=== PATIENT | male | born 1985 ===

== ENCOUNTER 2016-08-06 18:53 | Emergency (ER) | payer OTHER ==
[~2016-08-06] VITALS: Ht 172.7 cm; Wt 133.7 kg
[2016-08-06 19:01] VITALS: Ht 172.7 cm; Wt 133.7 kg
--- NOTE | 2016-08-06 19:39 | DIAGNOSTIC IMAGING REPORT ---
LEFT ANKLE MIN 3 VIEWS ROUTINE CLINICAL HISTORY: Left ankle injury. COMPARISON: None FINDINGS: Alignment of left ankle is anatomic. No acute fracture is identified. There is moderate lateral ankle soft tissue swelling. Talar dome is intact. IMPRESSION: 1. No acute fracture or dislocation of the left ankle. 2. Moderate lateral ankle soft tissue swelling. Electronically signed by: Kenneth Alvarez M.D. 08/06/2016 7:38 PM Dictated Date/Time: 08/06/2016 7:36 PM
[2016-08-06] MEDS ORDERED: KETO1DRO17 OPB (19:44)
[2016-08-06] MEDS ORDERED: CLR10 PO (19:44)
[2016-08-06] MEDS ORDERED: IBUP-103 PO (19:44)
[2016-08-06 20:08] VITALS: BP 141/81; PULSE 76; TEMP 37; O2SAT 99
--- NOTE | 2016-08-06 21:09 | EMERGENCY ROOM VISIT NOTE ---
History Report prepared by Mario: Esther Denis Under the Supervision of: Dr. Carlos Evans M.D. First contact with patient: 19:07 Chief Complaint: ANKLE PAIN Stated Complaint: LEFT ANKLE History of Present Illness The patient is a 30 year old male who presents to the Emergency Room with complaints of constant left ankle pain beginning yesterday. 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 He said that he let his ankle soak in Epsom salt yesterday, and that he had an ice pack next to his ankle overnight. He reports that his last ankle injury was 7 years ago. Source of History: patient Onset: yesterday Position: ankle (left) Timing: constant Review of Systems See HPI for pertinent positives and negatives. A total of six systems were reviewed and were otherwise negative. Past Medical & Surgical Medical Problems: (1) No known problems Surgical Problems: (1) H/O adenoidectomy (2) S/P tonsillectomy Family History Cancer Diabetes mellitus FH: hypertension Heart disease Social History Smoking Status: Never Smoker Alcohol Use: none Housing Status: lives with family Current/Historical Medications Scheduled Ibuprofen Tab (Advil), 400 MG PO PRN UD Scheduled PRN Ketotifen Fumarate (Ophth) (Allergy Eye Drops), 2 DROPS OPB BID PRN for Loratadine (Claritin), 10 MG PO DAILY PRN for ALLERGIC REACTION Physical Exam Vital Signs Date Time Temp Pulse Resp B/P (MAP) Pulse Ox O2 Delivery O2 Flow Rate FiO2 08/06/16 20:08 37.0 76 18 141/81 99 08/06/16 19:01 37.0 75 16 143/89 97 Room Air Physical Exam GENERAL: Alert, Well nourished, well developed, no acute distress MUSCULOSKELETAL: Moderate edema on inspection of the ankle. No open wounds. Mild tenderness to palpation of the lateral malleolus. No navicular, proximal fibula, or fifth metatarsal tenderness. Moderate ecchymosis present. There is mild tenderness to the deltoid ligament. Extremity neurovascularly intact. No ligamentous instability. Remainder of the lower extremity is unremarkable. SKIN: Ecchymosis as above. No rash or jaundice. NEURO: Normal sensorium. No sensory or motor deficits. Medical Decision & Procedures ER Provider Diagnostic Interpretation: X-ray: Per my interpretation, radiologist review. LEFT ANKLE MIN 3 VIEWS ROUTINE CLINICAL HISTORY: Left ankle injury. COMPARISON: None FINDINGS: Alignment of left ankle is anatomic. No acute fracture is identified. There is moderate lateral ankle soft tissue swelling. Talar dome is intact. IMPRESSION: 1. No acute fracture or dislocation of the left ankle. 2. Moderate lateral ankle soft tissue swelling. Electronically signed by: Kenneth Alvarez M.D. 08/06/2016 7:38 PM Dictated Date/Time: 08/06/2016 7:36 PM ED Course 1907: The patient was evaluated in room D7. A complete history and physical exam was performed. 1947: I reevaluated the patient. Discussed results and discharge instructions: He verbalized understanding and agreement. The patient is ready for discharge. Medical Decision Triage Nursing notes reviewed. The patient's presentation and history were concerning for isolated ankle injury Etiologies such as soft tissue injury, fracture, dislocation, neurovascular compromise, compartment syndrome, as well as others were entertained. The patient was evaluated. On physical examination this be consistent with an ankle sprain. He stated this occurred at work yesterday. X-ray imaging was ordered. X-ray imaging was unremarkable. The patient was placed in a gel ankle splint. He will use Tylenol and ibuprofen. Rest, ice and elevation were instructed. The patient felt comfortable with this plan. The patient was also provided a list of primary care physician since he does not have one and his blood pressure was elevated. I gave my usual and customary discussion regarding this issue. Return were outlined and the patient was discharged in stable condition. Medication Reconciliation: I attest that I have personally reviewed the patient' s current medication list Blood pressure screening: Patient was found to have an elevated blood pressure and was provided a list of primary care clinics in the area for recheck and further treatment. Impression Primary Impression: Left ankle sprain Scribe Attestation The scribe's documentation has been prepared under my direction and personally reviewed by me in its entirety. I confirm that the note above accurately reflects all work, treatment, procedures, and medical decision making performed by me. Departure Information Dispostion Home / Self-Care Forms HOME CARE DOCUMENTATION FORM, IMPORTANT VISIT INFORMATION, Work Instructions Patient Instructions My [facility] Additional Instructions ORTHOPEDIC INSTRUCTIONS: Ibuprofen(Motrin, Advil) may be used for fever or pain. Use 600mg every six hours as needed. Take with food. Avoid using more than 2400mg in a 24 hour period. Do not use 2400mg per day for more than three consecutive days without physician direction. Prolonged inappropriate use can lead to stomach upset or ulcers. (AND/OR) Acetaminophen(Tylenol) may be used for fever or pain. Use 1000mg every six hours as needed. Avoid using more than 4000mg in a 24 hour period. Ice compresses for 20 minutes at a time four times daily for 2-3 days. Weight-bearing as tolerated. Use the gel splint as instructed. Rest and elevate your injury. Return to the ER immediately for any numbness, tingling, severe pain, extreme swelling in the extremity or as needed. Follow-up with a primary physician as discussed for a recheck of your current condition and blood pressure check.
== END 2016-08-06 20:09 | disposition home or self-care (01) ==
LOC: C.EDB 18:56 → C.EDD 20:09
DX: S93.402A Sprain of unspecified ligament of left ankle, initial encounter (principal); X58.XXXA Exposure to other specified factors, initial encounter; Y92.89 Other specified places as the place of occurrence of the external cause; Y99.0 Civilian activity done for income or pay; Z98.890 Other specified postprocedural states; Z80.9 Family history of malignant neoplasm, unspecified; Z83.3 Family history of diabetes mellitus; Z82.49 Family history of ischemic heart disease and other diseases of the circulatory system